=== PATIENT | male | born 1960 | race Two or more races ===

== ENCOUNTER 2022-04-22 21:27 | Inpatient (IN) | payer MEDICAID, OTHER ==
[~2022-04-22] VITALS: Ht 172.7 cm; Wt 82.5 kg
[2022-04-23 00:34] LABS: Albumin 3.9 g/dL (3.4-5.0); BUN/Creatinine Ratio 15.2; Calcium 9.1 mg/dL (8.5-10.1); Potassium 4.1 mmol/L (3.5-5.1)
[2022-04-23 00:35] LABS: Basophils # (auto) 0 10 ^3/uL (0-0.2); Basophils % (auto) 0.3 % (0.0-2.0); Eosinophils # (auto) 0.2 10 ^3/uL (0-0.8); Eosinophils % (auto) 1.8 % (0.0-7.0); Hematocrit 41.8 % (41.0-53.0); Hemoglobin 14.9 g/dL (13.5-17.5); Lymphocytes # (auto) 2.4 10 ^3/uL (0.4-5.4); Lymphocytes % (auto) 24.3 % (10.0-50.0); Mean Corpuscular Hemoglobin 31.8 pg (28.0-32.0); Mean Corpuscular Hgb Conc. 35.7 g/dL (32.0-36.0); Mean Corpuscular Volume 89.1 fL (80.0-100.0); Monocytes # (auto) 0.6 10 ^3/uL (0-1.3); Neutrophils # (auto) 6.6 10 ^3/uL (1.6-8.6); Neutrophils % (auto) 67.6 % (37.0-80.0); Nucleated Red Blood Cells % 0.5 %; Red Blood Cells 4.69 10^6/uL (4.5-5.90); Red Cell Distribution Width 13.9 % (11.8-14.3); White Blood Cell 9.7 10^3/uL (4.4-10.8)
[2022-04-23 00:37] LABS: Bilirubin, Total 0.8 mg/dL (0.2-1.0); Total Protein 7.6 g/dL (6.4-8.2)
[2022-04-23] MEDS ORDERED: ASPirin 325 MG TAB PO ONE (03:45)
[2022-04-23] MEDS ORDERED: NITROGLYCERIN 0.4 MG SL TAB SL PRN (04:00)
[2022-04-23] MEDS ORDERED: MORPHINE SULFATE INJ 2 MG/ml SYRG IV PRN ×2 (04:00)
[2022-04-23] MEDS ORDERED: ONDANSETRON HCL 4 MG/2 ML VIAL IV PRN (04:00)
[2022-04-23] MEDS ORDERED: TAMS0.4C36 PO (07:16)
[2022-04-23] MEDS ORDERED: SIMV-8 PO (07:16)
[2022-04-23] MEDS ORDERED: METO-158 PO (07:16)
[2022-04-23] MEDS ORDERED: METF-370 PO (07:16)
[2022-04-23] MEDS ORDERED: ADENOSINE 66 MG in GIVE UN-DILUTED 0 ML IV ONE (08:00)
[2022-04-23] MEDS: amLODIPine BESYLATE 5 MG TAB PO SCH (11:00)
[2022-04-23] MEDS: ASPirin 81 mg TAB PO SCH (11:00)
[2022-04-23] MEDS ORDERED: DEXTROSE (50%) 50ML SYRG IV PRN (17:30)
[2022-04-23] MEDS: TAMSULOSIN HYDROCHLORIDE 0.4 MG CAP PO SCH (18:33)
[2022-04-23] MEDS: InsuLIN REG 1unit/0.01ml Soln (100units/ml) SC SCH (21:10)
[2022-04-23] MEDS: ACCU-CHEK COMFORT CURVE STRIP VI SCH (21:10)
[2022-04-23 22:43] VITALS: BP 144/71
[2022-04-24 05:51] VITALS: BP 157/89
[2022-04-24] MEDS: InsuLIN REG 1unit/0.01ml Soln (100units/ml) SC SCH ×4 (07:00→22:00)
[2022-04-24] MEDS: ACCU-CHEK COMFORT CURVE STRIP VI SCH ×4 (07:03→22:21)
[2022-04-24 08:00] VITALS: BP 138/83
[2022-04-24] MEDS: ENOXAPARIN SOD 40 MG/0.4 ML SYRINGE SC SCH (10:00)
[2022-04-24] MEDS: ATORVASTATIN 20 MG TAB PO SCH (10:14)
[2022-04-24] MEDS: ASPirin 81 mg TAB PO SCH (10:15)
[2022-04-24] MEDS: PANTOPRAZOLE 40 MG TAB PO SCH (10:15)
[2022-04-24] MEDS: amLODIPine BESYLATE 5 MG TAB PO SCH (10:17)
[2022-04-24 12:00] VITALS: BP 148/87
[2022-04-24] MEDS ORDERED: FAMOTIDINE (10MG/ML) 2ML VL IV ONE (17:00)
[2022-04-24] MEDS: TAMSULOSIN HYDROCHLORIDE 0.4 MG CAP PO SCH (17:42)
[2022-04-24] MEDS ORDERED: IOHEXOL 350 MG/ML 100ML IJ ONE (18:24)
[2022-04-24 22:00] VITALS: BP 117/74
[2022-04-24] MEDS: SUCRALFATE 1 GM/10 ML ORAL SUSP PO SCH (22:00)
[2022-04-25 05:00] VITALS: BP 130/73
[2022-04-25] MEDS: SUCRALFATE 1 GM/10 ML ORAL SUSP PO SCH ×4 (06:09→22:11)
[2022-04-25] MEDS: InsuLIN REG 1unit/0.01ml Soln (100units/ml) SC SCH ×4 (06:09→22:00)
[2022-04-25] MEDS: ACCU-CHEK COMFORT CURVE STRIP VI SCH ×4 (06:10→22:11)
[2022-04-25 06:11] LABS: Basophils # (auto) 0 10 ^3/uL (0-0.2); Basophils % (auto) 0.3 % (0.0-2.0); Eosinophils # (auto) 0.1 10 ^3/uL (0-0.8); Eosinophils % (auto) 1.5 % (0.0-7.0); Hematocrit 41.2 % (41.0-53.0); Hemoglobin 14.5 g/dL (13.5-17.5); Lymphocytes # (auto) 2.2 10 ^3/uL (0.4-5.4); Mean Corpuscular Hemoglobin 31.5 pg (28.0-32.0); Mean Corpuscular Hgb Conc. 35.2 g/dL (32.0-36.0); Mean Corpuscular Volume 89.7 fL (80.0-100.0); Monocytes # (auto) 0.6 10 ^3/uL (0-1.3); Monocytes % (auto) 7.9 % (0.0-12.0); Neutrophils # (auto) 4.7 10 ^3/uL (1.6-8.6); Neutrophils % (auto) 61.3 % (37.0-80.0); Nucleated Red Blood Cells % 0.1 %; Red Blood Cells 4.59 10^6/uL (4.5-5.90); Red Cell Distribution Width 13.5 % (11.8-14.3); White Blood Cell 7.7 10^3/uL (4.4-10.8)
[2022-04-25 06:16] LABS: INR 1.04 (0.9-1.15); Partial Thromboplastin Time 27.7 sec (24.6-33.4)
[2022-04-25 06:22] LABS: Albumin 3.8 g/dL (3.4-5.0); Calcium 8.8 mg/dL (8.5-10.1); Potassium 3.4 mmol/L (3.5-5.1)
[2022-04-25 06:46] LABS: BUN/Creatinine Ratio 13.2; Bilirubin, Total 1.2 mg/dL (0.2-1.0); Total Protein 7.6 g/dL (6.4-8.2)
[2022-04-25 08:00] VITALS: BP 121/87
[2022-04-25] MEDS: ASPirin 81 mg TAB PO SCH (09:30)
[2022-04-25] MEDS: ENOXAPARIN SOD 40 MG/0.4 ML SYRINGE SC SCH (09:31)
[2022-04-25] MEDS: ATORVASTATIN 20 MG TAB PO SCH (09:32)
[2022-04-25] MEDS: amLODIPine BESYLATE 5 MG TAB PO SCH (09:33)
[2022-04-25] MEDS: PANTOPRAZOLE 40 MG TAB PO SCH ×2 (10:19→22:11)
[2022-04-25 12:00] VITALS: BP 123/81
[2022-04-25] MEDS ORDERED: LIDOCAINE VISCOUS 2% 15ML UD ONE (14:33)
[2022-04-25] MEDS ORDERED: SODIUM CHLORIDE LOCK 10 ML ONE (14:33)
[2022-04-25] MEDS ORDERED: MIDAZOLAM HCL 5 MG/ML-1ML VIAL ONE (14:33)
[2022-04-25] MEDS ORDERED: fentaNYL CITRATE 100 MCG/2 ML VL ONE (14:34)
[2022-04-25] MEDS: diphenhdrAMINE HCL 50 MG/1 ML VL ONE ×2 (14:42→14:44)
[2022-04-25 16:00] VITALS: BP 116/74
[2022-04-25] MEDS: TAMSULOSIN HYDROCHLORIDE 0.4 MG CAP PO SCH (18:23)
[2022-04-25 21:26] VITALS: BP 122/66
[2022-04-26 05:03] VITALS: BP 128/69
[2022-04-26] MEDS: InsuLIN REG 1unit/0.01ml Soln (100units/ml) SC SCH ×3 (06:59→17:00)
[2022-04-26] MEDS: SUCRALFATE 1 GM/10 ML ORAL SUSP PO SCH ×3 (06:59→18:19)
[2022-04-26] MEDS: ACCU-CHEK COMFORT CURVE STRIP VI SCH ×3 (07:25→17:15)
[2022-04-26 09:00] VITALS: BP 134/76
[2022-04-26] MEDS: PANTOPRAZOLE 40 MG TAB PO SCH (09:45)
[2022-04-26] MEDS: ATORVASTATIN 20 MG TAB PO SCH (09:45)
[2022-04-26] MEDS: ASPirin 81 mg TAB PO SCH (09:46)
[2022-04-26] MEDS: amLODIPine BESYLATE 5 MG TAB PO SCH (09:49)
[2022-04-26] MEDS: ENOXAPARIN SOD 40 MG/0.4 ML SYRINGE SC SCH (09:52)
[2022-04-26 13:00] VITALS: BP 133/81
[2022-04-26] MEDS ORDERED: PANT40TA2 PO (16:37)
[2022-04-26] MEDS ORDERED: AMLO-489 PO (16:37)
[2022-04-26] MEDS ORDERED: SUCR1TAB22 OR (16:37)
[2022-04-26 17:00] VITALS: BP 166/93
[2022-04-26 17:52] VITALS: BP 134/76
[2022-04-26] MEDS: TAMSULOSIN HYDROCHLORIDE 0.4 MG CAP PO SCH (18:19)
== END 2022-04-26 19:11 | disposition home or self-care (01) | DRG 203 ==
LOC: ER 21:31 → TELE 04-23 03:54 → TELE-EAST 04-23 20:30
PROVIDERS: ADMIT Internal Medicine; ATTEND Internal Medicine
PROC: 0DB68ZX Excision of Stomach, Via Natural or Artificial Opening Endoscopic, Diagnostic (ICD-10-PCS; 2022-04-25)
PROC: 0DB98ZX Excision of Duodenum, Via Natural or Artificial Opening Endoscopic, Diagnostic (ICD-10-PCS; principal; 2022-04-25 14:39)
DX: R07.89 Other chest pain (principal); K26.3 Acute duodenal ulcer without hemorrhage or perforation; E11.65 Type 2 diabetes mellitus with hyperglycemia; E78.00 Pure hypercholesterolemia, unspecified; E78.5 Hyperlipidemia, unspecified; I10 Essential (primary) hypertension; N40.0 Benign prostatic hyperplasia without lower urinary tract symptoms; Z20.822 Contact with and (suspected) exposure to COVID-19; K25.9 Gastric ulcer, unspecified as acute or chronic, without hemorrhage or perforation; K29.70 Gastritis, unspecified, without bleeding; K29.80 Duodenitis without bleeding; Z80.9 Family history of malignant neoplasm, unspecified
CPT/HCPCS: 36415; 71045; 74177; 76705; 78452; 80053; 82962; 83690; 83880; 84484; 85025; 85610; 85730; 86850; 86900; 86901; 87426; 93005; 93017; 93306; 96365; G0378; J0153; J1815; J2250; J2405; J3490

== ENCOUNTER 2022-10-09 20:43 | Emergency (ER) | payer MEDICAID ==
[~2022-10-09] VITALS: Ht 172.7 cm; Wt 76.0 kg
[~2022-10-09 20:43] MED LIST: AMLO-489 PO; METF-370 PO; METO-158 PO; PANT40TA2 PO; SIMV-8 PO; SUCR1TAB22 OR; TAMS0.4C36 PO
[2022-10-09 21:25] LABS: Basophils # (auto) 0.1 10 ^3/uL (0-0.2); Basophils % (auto) 0.7 % (0.0-2.0); Eosinophils # (auto) 0.1 10 ^3/uL (0-0.8); Eosinophils % (auto) 1.5 % (0.0-7.0); Hematocrit 42.3 % (41.0-53.0); Hemoglobin 14.8 g/dL (13.5-17.5); Lymphocytes # (auto) 2.4 10 ^3/uL (0.4-5.4); Lymphocytes % (auto) 27.6 % (10.0-50.0); Mean Corpuscular Hemoglobin 30.7 pg (28.0-32.0); Mean Corpuscular Hgb Conc. 34.9 g/dL (32.0-36.0); Mean Corpuscular Volume 87.8 fL (80.0-100.0); Monocytes # (auto) 0.5 10 ^3/uL (0-1.3); Monocytes % (auto) 5.7 % (0.0-12.0); Neutrophils # (auto) 5.7 10 ^3/uL (1.6-8.6); Neutrophils % (auto) 64.5 % (37.0-80.0); Nucleated Red Blood Cells % 0.3 %; Red Blood Cells 4.82 10^6/uL (4.5-5.90); Red Cell Distribution Width 14.4 % (11.8-14.3); White Blood Cell 8.8 10^3/uL (4.4-10.8)
[2022-10-09 21:42] LABS: Albumin 3.8 g/dL (3.4-5.0); Calcium 9.8 mg/dL (8.5-10.1); Potassium 4.2 mmol/L (3.5-5.1)
[2022-10-09 21:46] LABS: Bilirubin, Total 0.6 mg/dL (0.2-1.0); Total Protein 8.2 g/dL (6.4-8.2)
[2022-10-10 01:54] VITALS: BP 139/76
== END 2022-10-10 01:56 | disposition home or self-care (01) ==
LOC: ER 20:43
DX: K80.20 Calculus of gallbladder without cholecystitis without obstruction (principal); I10 Essential (primary) hypertension; E11.9 Type 2 diabetes mellitus without complications; E78.5 Hyperlipidemia, unspecified; Z79.899 Other long term (current) drug therapy; Z90.49 Acquired absence of other specified parts of digestive tract
CPT/HCPCS: 36415; 76705; 80053; 83690; 85025; 93005

== ENCOUNTER 2023-06-17 06:36 | Emergency (ER) | payer MEDICAID ==
[~2023-06-17] VITALS: Ht 167.6 cm; Wt 79.8 kg
[~2023-06-17 06:36] MED LIST changes: -AMLO-489 PO; +AMLO1TAB22 PO; -SIMV-8 PO; +SIMV20TA20 PO
[2023-06-17] MEDS ORDERED: MECL25CH38 PO (08:37)
[2023-06-17 08:57] LABS: Basophils # (auto) 0 10 ^3/uL (0-0.2); Basophils % (auto) 0.2 % (0.0-2.0); Eosinophils # (auto) 0.1 10 ^3/uL (0-0.8); Eosinophils % (auto) 0.7 % (0.0-7.0); Hemoglobin 13.9 g/dL (13.5-17.5); Lymphocytes # (auto) 1.7 10 ^3/uL (0.4-5.4); Lymphocytes % (auto) 19.4 % (10.0-50.0); Mean Corpuscular Hemoglobin 30.5 pg (28.0-32.0); Mean Corpuscular Volume 89.7 fL (80.0-100.0); Monocytes # (auto) 0.4 10 ^3/uL (0-1.3); Monocytes % (auto) 5.2 % (0.0-12.0); Neutrophils # (auto) 6.4 10 ^3/uL (1.6-8.6); Neutrophils % (auto) 74.5 % (37.0-80.0); Red Blood Cells 4.57 10^6/uL (4.5-5.90); Red Cell Distribution Width 14.2 % (11.8-14.3); White Blood Cell 8.6 10^3/uL (4.4-10.8)
[2023-06-17 09:13] LABS: Alanine Aminotransferase 26 U/L (7-40); Albumin 4.5 g/dL (3.2-4.8); Alkaline Phosphatase 64 U/L (46-116); Anion Gap 6 (5-15); Aspartate Aminotransferase 19 U/L (13-40); BUN/Creatinine Ratio 10.4 (10.0-20.0); Blood Urea Nitrogen 12 mg/dL (9-23); Calcium 9.5 mg/dL (8.5-10.1); Carbon Dioxide 28 mmol/L (20-30); Chloride 107 mmol/L (98-107); Glucose 143 mg/dL (74-106); Potassium 4.4 mmol/L (3.5-5.1); Sodium 141 mmol/L (136-145)
[2023-06-17 09:14] LABS: Total Protein 7.4 g/dL (5.7-8.2)
[2023-06-17 11:06] VITALS: BP 145/72; PULSE 62; RESP 16; TEMP 98; O2SAT 98
== END 2023-06-17 11:08 | disposition home or self-care (01) ==
LOC: EDBD 06:36 → EDUNIT# 06:36 → ER 06:36
DX: E11.65 Type 2 diabetes mellitus with hyperglycemia (principal); I10 Essential (primary) hypertension; E78.5 Hyperlipidemia, unspecified
CPT/HCPCS: 36415; 80053; 82962; 84484; 85025; 93005